=== PATIENT | male | born 2000 | race Caucasian/White ===

== ENCOUNTER 2022-06-02 19:27 | Emergency (ER) | payer OTHER ==
[2022-06-02 19:33] VITALS: BP 114/76; PULSE 81; RESP 18; TEMP 97.7; BMI 20.7
[2022-06-02] MEDS ORDERED: IBUPROFEN 600 MG TABLET (FP) PO ONE ×2 (20:38→20:52)
[2022-06-02] MEDS ORDERED: DIPHTH,PERTUSS(ACELL),TET 0.5 ML DISP.SYRIN IM ONE ×2 (20:38→20:53)
[2022-06-02] MEDS ORDERED: SILVER SULFADIAZINE 1% TOP CREAM 50 GM JAR TP ONE ×2 (20:38→20:52)
== END 2022-06-02 21:02 | disposition home or self-care (01) ==
LOC: JERFT 19:27
PROC: 3E0234Z Introduction of Serum, Toxoid and Vaccine into Muscle, Percutaneous Approach (ICD-10-PCS; principal; 2022-06-02)
DX: T25.222A Burn of second degree of left foot, initial encounter (principal); X11.8XXA Contact with other hot tap-water, initial encounter
CPT/HCPCS: 90715; 99283-25